=== PATIENT | male | born 2000 | race Caucasian/White ===

== ENCOUNTER 2021-05-23 21:14 | Inpatient (IN) | payer OTHER ==
[2021-05-23 21:37] LABS: BILIRUBIN,URINE NEGATIVE (NEGATIVE); GLUCOSE, URINE (UA) NEGATIVE (NEGATIVE); KETONES,URINE (UA) 15 mg/dL (NEGATIVE); LEUKOCYTE ESTERASE, URINE NEGATIVE (NEGATIVE); NITRITE,URINE NEGATIVE (NEGATIVE); OCCULT BLOOD,URINE LARGE (NEGATIVE); PH,URINE 6.5 PH (5.0-7.5); PROTEIN,URINE 30 mg/dL (NEGATIVE); UROBILINOGEN,URINE 0.2 (NORMAL) E.U./dL (NORMAL)
[2021-05-23 21:42] LABS: CLARITY,URINE CLEAR (CLEAR)
[2021-05-23 21:49] LABS: WBC,URINE 0-3 /HPF (0-3)
[2021-05-23 21:50] LABS: BACTERIA,URINE None Seen /HPF (None Seen); SQUAMOUS EPITHELIAL CELL,UR NONE SEEN (<= Few)
[2021-05-23] MEDS ORDERED: SODIUM CHLORIDE 0.9% 500 ML IV STA (22:02)
--- NOTE | 2021-05-23 22:06 | ED Physician Documentation ---
History of Present Illness - Stated complaint Stated Complaint: BLOOD IN URINE - Chief complaint Chief Complaint: Abd Pain - History obtained from History obtained from: Patient - Additonal information Additional information: 20yM previously healthy p/w hematuria since this morning with dysuria and persistent hematuria in the evening after going to the gym today. Patient states he has been "on and off" about going to the gym and has been undergoing rigorous workouts this past week that are new for him with resultant body aches, especially "after legs day". He reports having some alcohol last night and felt he may have been dehydrated this morning when he urinated and saw his urine was blood tinged. otherwise felt fine. this evening he developed mild constant, gradual onset mid left abdominal aching that is currently 2/10, worse with urinating (max 4/10), a/w mild dysuria and increasing hematuria. denies personal or FH of kidney issues. denies back pain, nausea. denies testicular or penis pain, abnormal discharge, fever, rash, sore throat or recent illness. Review of Systems Ten Systems: 10 systems reviewed and negative Constitutional: reports: Myalgias. denies: Fever, Chills Cardiac: denies: Chest pain / pressure Respiratory: denies: Dyspnea GI: reports: Abdominal Pain. denies: Nausea, Vomiting, Constipation, Diarrhea : reports: Dysuria, Hematuria. denies: Frequency Musculoskeletal: denies: Back pain PD PAST MEDICAL HISTORY - Past Medical History Past Medical History: No - Past Surgical History Past Surgical History: No - Present Medications Home Medications: Ambulatory Orders Medication Instructions Recorded Confirmed No Known Home Medications 05/23/21 05/23/21 - Allergies Allergies/Adverse Reactions: Allergies Allergy/AdvReac Type Severity Reaction Status Date / Time No Known Drug Allergies Allergy Verified 05/23/21 21:22 - Social History Does the pt smoke?: No Smoking Status: Never smoker Does the pt drink ETOH?: Yes Does the pt have substance abuse?: No - Immunizations Immunizations are current?: Yes PD ED PE NORMAL - Vitals Vital signs reviewed: Yes - General General: Alert and oriented X 3, No acute distress, Well developed/nourished - HEENT HEENT: Atraumatic, PERRL, EOMI - Neck Neck: Supple, no meningeal sign - Cardiac Cardiac: RRR - Respiratory Respiratory: No respiratory distress, Clear bilaterally - Abdomen Abdomen: Non tender, Non distended - Back Back: No CVA TTP - Derm Derm: Normal color - Extremities Extremities: No deformity - Neuro Neuro: Alert and oriented X 3 - Psych Psych: Normal mood, Normal affect Results - Vitals Vitals: Vital Signs - 24 hr 05/23/21 21:19 Temperature 36.7 C Heart Rate 76 Respiratory 16 Rate Blood Pressure 149/76 H O2 Saturation 100 Oxygen O2 Source Room air - Labs Labs: Laboratory Tests 05/23/21 05/23/21 05/23/21 21:25 22:10 22:10 WBC 8.7 RBC 5.00 Hgb 15.6 Hct 44.6 MCV 89.2 MCH 31.2 H MCHC 35.0 RDW 12.3 Plt Count 183 MPV 10.7 Neut # (Auto) 5.9 Lymph # (Auto) 1.6 [place] # (Auto) 1.1 H Eos # (Auto) 0.1 Baso # (Auto) 0.0 Absolute Nucleated RBC 0.00 Nucleated RBC % 0.0 Sodium 139 Potassium 3.2 L Chloride 104 Carbon Dioxide 24 Anion Gap 11.0 BUN 7 Creatinine 0.9 Estimated GFR (MDRD) 107 Glucose 95 Calcium 9.1 Total Creatine Kinase 75820 H* Urine Color YELLOW Urine Clarity CLEAR Urine pH 6.5 Ur Specific [place] 1.010 Urine Protein 30 H Urine Glucose (UA) NEGATIVE Urine Ketones 15 H Urine Occult Blood LARGE H Urine Nitrite NEGATIVE Urine Bilirubin NEGATIVE Urine Urobilinogen 0.2 (NORMAL) Ur Leukocyte Esterase NEGATIVE Urine RBC 6-10 H Urine WBC 0-3 Ur Squamous Epith Cells NONE SEEN Urine Bacteria None Seen Ur Microscopic Review INDICATED Urine Culture Comments NOT INDICATED PD MEDICAL DECISION MAKING - ED course ED course: 20yM p/w hematuria, suspect possible mild rhabdomyolysis given recent intense workouts. no cva ttp, no signs of infection on ua. Low suspicion for uti, pyelo, nephrolithiasis. Will eval labs, provide fluids. patient declined pain meds. d/w Dr. Neil for admission for rhabdo. Departure - Departure Disposition: 66 [facility] DC/Xfer Clinical Impression: Rhabdomyolysis Condition: Stable
[2021-05-23 22:20] LABS: BASOPHILS % (AUTO) 0.5 %; EOSINOPHILS # (AUTO) 0.1 10^3/uL (0.0-0.7); EOSINOPHILS % (AUTO) 0.8 %; HCT - HEMATOCRIT 44.6 % (42.0-52.0); HGB - HEMOGLOBIN 15.6 g/dL (14.0-18.0); LYMPHOCYTES # (AUTO) 1.6 10^3/uL (1.5-3.5); LYMPHOCYTES % (AUTO) 18.4 %; MEAN CORPUSCULAR HEMOGLOBIN 31.2 pg (27.0-31.0); MEAN CORPUSCULAR VOLUME 89.2 fL (80.0-94.0); MEAN PLATELET VOLUME 10.7 fL (7.4-11.4); MONOCYTES # (AUTO) 1.1 10^3/uL (0.0-1.0); MONOCYTES % (AUTO) 12.2 %; NEUTROPHILS # (AUTO) 5.9 10^3/uL (1.5-6.6); NEUTROPHILS % (AUTO) 67.9 %; PLT - PLATELET COUNT 183 10^3/uL (130-450); RED CELL DISTRIBUTION WIDTH 12.3 % (12.0-15.0); WHITE BLOOD COUNT 8.7 x10^3/uL (4.8-10.8)
[2021-05-23 23:06] LABS: CALCIUM 9.1 mg/dL (8.5-10.3); CREATININE 0.9 mg/dL (0.6-1.2); POTASSIUM 3.2 mmol/L (3.5-5.0)
[2021-05-23] MEDS ORDERED: POTASSIUM CHLORIDE 20 MEQ/15 ML UDC PO STA (23:08)
[2021-05-23] MEDS ORDERED: SODIUM CHLORIDE 0.9% 1,000 ML IV STA (23:22)
[2021-05-23] MEDS ORDERED: SODIUM CHLORIDE FLUSH 0.9% 10 ML SYRINGE IVP PRN (23:42)
[2021-05-23] MEDS ORDERED: ZOLPIDEM 5 MG TABLET PO PRN (23:42)
[2021-05-23] MEDS ORDERED: ACETAMINOPHEN 325 MG TABLET PO PRN (23:42)
[2021-05-23] MEDS ORDERED: ONDANSETRON 4 MG/2 ML VIAL IVP PRN (23:42)
[2021-05-23] MEDS ORDERED: SODIUM CHLORIDE 0.9% 1,000 ML IV SCH (23:45)
--- NOTE | 2021-05-23 23:57 | HISTORY & PHYSICAL EXAMINATION ---
History of Present Illness - Admitted From Admitted From:: ED - History Obtained From History obtained from: ED provider and the patient - History of Present Illness HPI Comment/Other: This is a 20-year-old white male with a negative past medical history. He is full-time in the [employer]. Patient exercised heavily yesterday and the day before and describes that a new workout was done yesterday using his lower extremities. He woke up today with excruciating pain of his thighs which he tried to help by stretching those muscles for 5 hours, but this even made it worse; it brought tears to his eyes. He also noticed brown-red urine for the past 2 days. With these symptoms he presented to the ER. He rated his pain 8/10 but declined any pain medications. He denied a fever, respiratory symptoms, nausea, vomiting or diarrhea. He did have some lower abdominal pain when he urinated he said. His labs showed extremely high elevated serum CK level of 71,000. He was presented to the Hospitalist service for admission for treating rhabdomyolysis. History - Past Medical History Cardiovascular: reports: None Respiratory: reports: None Neuro: reports: None Endocrine/Autoimmune: reports: None GI: reports: None : reports: None HEENT: reports: None Psych: reports: None Musculoskeletal: reports: None Derm: reports: None MRSA Hx?: No - Family & Social History Family History: Mother: Alive and Well, Father: Alive and Well, Brother: Alive and Well Living arrangement: At home, Other (He is in the [place]) Social History Notes: He is active [employer]. He vapes with 5% nicotine. He drinks twice a month. He is not . - Substance History Use: Uses substance without health or social issues: Tobacco, Alcohol Meds/Allgy - Home Medications Home Medications: Ambulatory Orders Medication Instructions Recorded Confirmed No Known Home Medications 05/23/21 05/23/21 - Allergies Allergies/Adverse Reactions: Allergies Allergy/AdvReac Type Severity Reaction Status Date / Time No Known Drug Allergies Allergy Verified 05/23/21 21:22 Review of Systems - Constitutional Constitutional: reports: Fatigue - Genitourinary Genitourinary: reports: Hematuria - Musculoskeletal Musculoskeletal: reports: Muscle pain Exam - Vital Signs Reviewed Vital Signs: Yes Vital Signs: Vital Signs x48h Temp Pulse Resp BP Pulse Ox 05/23/21 23:51 82 22 147/89 H 98 11/12/21 21:19 36.7 C 76 16 149/76 H 100 - Physical Exam General Appearance: positive: No acute distress, Alert Eyes Bilateral: positive: Normal inspection, EOMI ENT: positive: ENT inspection nml, No signs of dehydration Neck: positive: Nml inspection, No JVD Respiratory: positive: No respiratory distress Cardiovascular: positive: Regular rate & rhythm Abdomen: positive: Non-tender, No distention Skin: positive: No rash, Warm, Dry Extremities: positive: Non-tender, No pedal edema Neurologic/Psychiatric: positive: Oriented x3 (Mom-focal) Conclusion/Plan - Problem List (1) Rhabdomyolysis Conclusion/Plan: He has the classic presentation of muscle pain, dark urine and elevated CK on labs. Will admit to Inpatient status to treat with saline infusion, treat pain and monitor for renal failure and hypocalcemia (which develops from serum calcium influx into injured skeletal muscles). With such a high serum CK, 48 hours or longer of iv fluids is expected. Pain, from muscle injury or from rehydration edema or from muscles being indurated, will be treated. Will check a complete CMP and will follow his BMP, CK and Ca daily. He will need education to avoid such excessive exercise in the future. (2) Exercise myoglobinuria Conclusion/Plan: He describes discolored urine, which is likely from the muscle breakdown, therefore myoglobinuria and not actual hematuria. As such, the U/A result has HIGH Blood but has few RBCs. (3) Hypokalemia Conclusion/Plan: Likely from dehydration after exercise. Replaced in ED. Follow BMP daily. - Lab Results Fish Bones: 05/23/21 22:10 05/23/21 22:10
[2021-05-24 00:30] LABS: B. PARAPERTUSSIS- RESP PCR PAN NOT DETECTED; B. PERTUSSIS- RESP PCR PANEL NOT DETECTED; C. PNEUMONIAE- RESP PCR PANEL NOT DETECTED; CORONAVIRUS 229E-RESP PCR NOT DETECTED; CORONAVIRUS HKU1-RESP PCR NOT DETECTED; CORONAVIRUS NL63-RESP PCR NOT DETECTED; CORONAVIRUS OC43-RESP PCR NOT DETECTED; HUMAN METAPNEUMOVIRUS NOT DETECTED; INFLUENZA A- RESP PCR PANEL NOT DETECTED; INFLUENZA B - RESP PCR PANEL NOT DETECTED; M. PNEUMONIAE- RESP PCR PANEL NOT DETECTED; PARAINFLUENZA VIRUS 1 NOT DETECTED; PARAINFLUENZA VIRUS 2 NOT DETECTED; PARAINFLUENZA VIRUS 3 NOT DETECTED; PARAINFLUENZA VIRUS 4 NOT DETECTED; RHINOVIRUS/ENTEROVIRUS NOT DETECTED; RSV- RESP PCR PANEL NOT DETECTED; SARS-CoV-2 -RESP PCR PANEL NOT DETECTED
[2021-05-24 00:55] LABS: ALBUMIN 3.8 g/dL (3.2-5.5); BILIRUBIN,DIRECT 0.2 mg/dL (0.1-0.5); BILIRUBIN,TOTAL 0.6 mg/dL (0.2-1.0); TOTAL PROTEIN 6.3 g/dL (6.7-8.2)
[2021-05-24] MEDS: NICOTINE 7 MG PATCH TOP PRN (01:27)
[2021-05-24 05:24] LABS: CREATININE 0.8 mg/dL (0.6-1.2); MAGNESIUM 2.2 mg/dL (1.7-2.8); POTASSIUM 3.8 mmol/L (3.5-5.0)
[2021-05-24] MEDS: SODIUM CHLORIDE FLUSH 0.9% 10 ML SYRINGE IVP SCH ×3 (05:28→17:23)
[2021-05-24] MEDS: SODIUM CHLORIDE 0.9% 1,000 ML IV SCH ×5 (08:17→21:15)
[2021-05-24 08:39] LABS: ETOH - ETHANOL < 5.0 mg/dL
[2021-05-24 08:40] LABS: CK- CREATINE KINASE 68071 IU/L (22-269)
--- NOTE | 2021-05-24 09:01 | PHARMACY PROGRESS NOTE ---
- Best Possible Medication History Admit Date and Time: 05/23/21 1019 Processed by: Nursing Medication History completed: Yes Patient Interview: Completed As the person ultimately responsible for medication therapy, providers are able to order a medication from an existing home medication list in [facility] via the "Reconcile Routine" prior to Confirmation of that medication by support associate. Such practice is discouraged except when the physician, in their clinical judg ment, deems that a medical need exists for a medication without regard to previous use.
--- NOTE | 2021-05-24 10:32 | PROVIDER PROGRESS NOTE ---
Assessment/Plan - Problem List (1) Rhabdomyolysis Assessment/Plan: 05/24 [place] [address] [place] [address]. pt report his muscle pain is resolved. he feel much better. he tolerated his diet. creatinine is at normal arrange. Educate the importance to keep hydration special at exercise to pt. increased IVF to 250cc/h, daily lab and CK monitor (2) protein in urine Conclusion/Plan: it is likely from the muscle breakdown from his extensive exercise and dehydration. pt has normal arrange creatinine level now. increase IVF to 250cc/h, continue lab monitor (3) Hypokalemia resolved. - Current Meds Current Meds: Current Medications Generic Name Dose Route Start Last Admin Trade Name Freq PRN Reason Stop Dose Admin Sodium Chloride 1,000 mls @ 250 mls/hr 05/24/21 07:38 05/24/21 09:49 Normal Saline 0.9% IV 250 mls/hr .Q4H JAMES Administration Nicotine 1 patch 05/24/21 01:18 05/24/21 01:27 Nicotine 7 Mg Patch TOP 1 patch DAILY PRN Administration Nicotine Craving Sodium Chloride 10 ml 05/24/21 01:00 05/24/21 08:22 Sodium Chloride Flush 0.9% 10 Ml Syringe IVP Not Given 0100,0900,1700 JAMES - Lab Result Fish Bone Diagrams: 05/23/21 22:10 05/24/21 05:05 - Additional Planning My Orders: My Active Orders 05/24/21 07:38 Sodium Chloride 0.9% [Normal Saline 0.9%] 1,000 ml IV 250 mls/hr 05/25/21 05:00 CK- CREATINE KINASE [CHEM] DAILYLAB 05/26/21 05:00 CK- CREATINE KINASE [CHEM] DAILYLAB 05/27/21 05:00 CK- CREATINE KINASE [CHEM] DAILYLAB 05/28/21 05:00 CK- CREATINE KINASE [CHEM] DAILYLAB 05/29/21 05:00 CK- CREATINE KINASE [CHEM] DAILYLAB Subjective - Subjective Patient Reports: Feeling Better, Resting Comfortably Objective Vital Signs: Vital Signs - 24 hr 05/23/21 05/23/21 05/24/21 21:19 23:51 00:46 Temperature 36.7 C 37.0 C Heart Rate 76 82 Heart Rate [ 74 Brachial] Respiratory 16 22 16 Rate Blood Pressure 149/76 H 147/89 H Blood Pressure 150/79 H [Left Brachial artery] O2 Saturation 100 98 100 05/24/21 08:00 Temperature 36.5 C Heart Rate Heart Rate [ 58 L Brachial] Respiratory 14 Rate Blood Pressure Blood Pressure 120/71 [Left Brachial artery] O2 Saturation Oxygen O2 Source Room air I&O (Last 24 Hrs): Intake and Output Totals x24h 05/22/21 05/23/21 05/24/21 23:59 23:59 23:59 Intake Total 500 1500 Balance 500 1500 General: Alert, Oriented x3, Cooperative, No acute distress HEENT: Atraumatic, PERRLA Neck: Supple Lymphatic: no adenopathy Neuro: Alert, Non Focal, Oriented Times 3 Cardiovascular: Regular rate, Normal S1, Normal S2 Respiratory: Chest non-tender, No respiratory distress, Breath sounds nml Abdomen: Normal bowel sounds, Soft, No tenderness Extremities: Normal pulses - Results Results: Laboratory Results WBC 8.7 x10^3/uL (4.8-10.8) 05/23/21 22:10 RBC 5.00 10^6/uL (4.70-6.10) 05/23/21 22:10 Hgb 15.6 g/dL (14.0-18.0) 05/23/21 22:10 Hct 44.6 % (42.0-52.0) 05/23/21 22:10 MCV 89.2 fL (80.0-94.0) 05/23/21 22:10 MCH 31.2 pg (27.0-31.0) H 05/23/21 22:10 MCHC 35.0 g/dL (32.0-36.0) 05/23/21 22:10 RDW 12.3 % (12.0-15.0) 05/23/21 22:10 Plt Count 183 10^3/uL (130-450) 05/23/21 22:10 MPV 10.7 fL (7.4-11.4) 05/23/21 22:10 Neut # (Auto) 5.9 10^3/uL (1.5-6.6) 05/23/21 22:10 Lymph # (Auto) 1.6 10^3/uL (1.5-3.5) 05/23/21 22:10 [place] # (Auto) 1.1 10^3/uL (0.0-1.0) H 05/23/21 22:10 Eos # (Auto) 0.1 10^3/uL (0.0-0.7) 05/23/21 22:10 Baso # (Auto) 0.0 10^3/uL (0.0-0.1) 05/23/21 22:10 Absolute Nucleated RBC 0.00 x10^3/uL 05/23/21 22:10 Nucleated RBC % 0.0 /100WBC 05/23/21 22:10 Sodium 138 mmol/L (135-145) 05/24/21 05:05 Potassium 3.8 mmol/L (3.5-5.0) 05/24/21 05:05 Chloride 109 mmol/L (101-111) 05/24/21 05:05 Carbon Dioxide 22 mmol/L (21-32) 05/24/21 05:05 Anion Gap 7.0 (6-13) 05/24/21 05:05 BUN 5 mg/dL (6-20) L 05/24/21 05:05 Creatinine 0.8 mg/dL (0.6-1.2) 05/24/21 05:05 Estimated GFR (MDRD) 122 (>89) 05/24/21 05:05 Glucose 98 mg/dL (70-100) 05/24/21 05:05 Calcium 8.0 mg/dL (8.5-10.3) L 05/24/21 05:05 Magnesium 2.2 mg/dL (1.7-2.8) 05/24/21 05:05 Total Bilirubin 0.6 mg/dL (0.2-1.0) 05/24/21 00:33 Direct Bilirubin 0.2 mg/dL (0.1-0.5) 05/24/21 00:33 AST 861 IU/L (10-42) H 05/24/21 00:33 ALT 194 IU/L (10-60) H 05/24/21 00:33 Alkaline Phosphatase 53 IU/L (42-121) 05/24/21 00:33 Total Creatine Kinase 81944 IU/L (22-269) H* 05/24/21 05:05 Total Protein 6.3 g/dL (6.7-8.2) L 05/24/21 00:33 Albumin 3.8 g/dL (3.2-5.5) 05/24/21 00:33 Globulin 2.5 g/dL (2.1-4.2) 05/24/21 00:33 Urine Color YELLOW 05/23/21 21:25 Urine Clarity CLEAR (CLEAR) 05/23/21 21: Urine pH 6.5 PH (5.0-7.5) 05/23/21 21:25 Ur Specific [place] 1.010 (1.002-1.030) 05/23/21 21: Urine Protein 30 mg/dL (NEGATIVE) H 05/23/21 21: Urine Glucose (UA) NEGATIVE mg/dL (NEGATIVE) 05/23/21: Urine Ketones 15 mg/dL (NEGATIVE) H 05/23/21 21: Urine Occult Blood LARGE (NEGATIVE) H 05/23/21 21: Urine Nitrite NEGATIVE (NEGATIVE) 05/23/21 21: Urine Bilirubin NEGATIVE (NEGATIVE) 05/23/21 21: Urine Urobilinogen 0.2 (NORMAL) E.U./dL (NORMAL) 05/23/21 21: Ur Leukocyte Esterase NEGATIVE (NEGATIVE) 05/23/21 21: Urine RBC 6-10 /HPF (0-5) H 05/23/21 21: Urine WBC 0-3 /HPF (0-3) 05/23/21 21:25 Ur Squamous Epith Cells NONE SEEN (<= Few) 05/23/21 21: Urine Bacteria None Seen /HPF (None Seen) 05/23/21 21: Ur Microscopic Review INDICATED 05/23/21 21: Urine Culture Comments NOT INDICATED 05/23/21 21: Nasal Adenovirus (PCR) NOT DETECTED 05/23/21 23: Nasal B. parapertussis DNA (PCR) NOT DETECTED 05/23/21 23: Nasal Coronavir 229E PCR NOT DETECTED 05/23/21 23: Nasal Coronavir HKU1 PCR NOT DETECTED 05/23/21 23: Nasal Coronavir NL63 PCR NOT DETECTED 05/23/21 23: Nasal Coronavir OC43 PCR NOT DETECTED 05/23/21 23: Nasal Enterovir/Rhinovir PCR NOT DETECTED 05/23/21 23:28 Nasal Influenza B PCR NOT DETECTED 05/23/21 23:28 Nasal Influenza A PCR NOT DETECTED 05/23/21 23:28 Nasal Parainfluen 1 PCR NOT DETECTED 05/23/21 23:28 Nasal Parainfluen 2 PCR NOT DETECTED 05/23/21 23:28 Nasal Parainfluen 3 PCR NOT DETECTED 05/23/21 23:28 Nasal Parainfluen 4 PCR NOT DETECTED 05/23/21 23:28 Nasal RSV (PCR) NOT DETECTED 05/23/21 23:28 Nasal B.pertussis DNA PCR NOT DETECTED 05/23/21 23:28 Nasal C.pneumoniae (PCR) NOT DETECTED 05/23/21 23:28 Bran Human Metapneumo PCR NOT DETECTED 05/23/21 23:28 Nasal M.pneumoniae (PCR) NOT DETECTED 05/23/21 23:28 Nasal SARS-CoV-2 (PCR) NOT DETECTED 05/23/21 23:28 Ethyl Alcohol < 5.0 mg/dL 05/24/21 05:05 ABX Reporting Has patient been on IV antibiotics over the past 48 hours?: No Current Medications - Current Medications Current Medications: Active Medications Acetaminophen (Acetaminophen 325 Mg Tablet) 650 mg PO Q4HR PRN PRN Reason: Pain 1 to 4 Sodium Chloride (Normal Saline 0.9%) 1,000 mls @ 250 mls/hr IV .Q4H [facility] Last Admin: 05/24/21 09:49 Dose: 250 mls/hr Documented by: Nicotine (Nicotine 7 Mg Patch) 1 patch TOP DAILY PRN PRN Reason: Nicotine Craving Last Admin: 05/24/21 01:27 Dose: 1 patch Documented by: Ondansetron HCl (Ondansetron 4 Mg/2 Ml Vial) 4 mg IVP Q6HR PRN PRN Reason: Nausea / Vomiting Sodium Chloride (Sodium Chloride Flush 0.9% 10 Ml Syringe) 10 ml IVP PRN PRN PRN Reason: NEEDED PER PROVIDER ORDERS Sodium Chloride (Sodium Chloride Flush 0.9% 10 Ml Syringe) 10 ml IVP 0100,0900,1700 [facility] Last Admin: 05/24/21 08:22 Dose: Not Given Documented by: Zolpidem Tartrate (Zolpidem 5 Mg Tablet) 5 mg PO QPM PRN PRN Reason: Insomnia No Known Home Medications 05/23/21
[2021-05-24] MEDS ORDERED: miSOPROStoL 200 MCG TABLET ONE (19:09)
[2021-05-24] MEDS ORDERED: METHYLERGONOVINE 0.2 MG/ML VIAL ONE (19:10)
[2021-05-24] MEDS ORDERED: CARBOPROST TROMETHAMINE 250 MCG/ML AMP IM ONE (19:10)
[2021-05-25] MEDS: SODIUM CHLORIDE FLUSH 0.9% 10 ML SYRINGE IVP SCH ×4 (00:02→23:45)
[2021-05-25] MEDS: SODIUM CHLORIDE 0.9% 1,000 ML IV SCH ×6 (01:07→21:46)
[2021-05-25 05:31] LABS: BASOPHILS % (AUTO) 0.6 %; EOSINOPHILS # (AUTO) 0.2 10^3/uL (0.0-0.7); EOSINOPHILS % (AUTO) 4.5 %; HCT - HEMATOCRIT 39.7 % (42.0-52.0); HGB - HEMOGLOBIN 13.4 g/dL (14.0-18.0); LYMPHOCYTES # (AUTO) 1.8 10^3/uL (1.5-3.5); LYMPHOCYTES % (AUTO) 35.9 %; MEAN CORPUSCULAR HEMOGLOBIN 30.9 pg (27.0-31.0); MEAN CORPUSCULAR HGB CONC 33.8 g/dL (32.0-36.0); MEAN CORPUSCULAR VOLUME 91.5 fL (80.0-94.0); MEAN PLATELET VOLUME 11.1 fL (7.4-11.4); MONOCYTES # (AUTO) 0.6 10^3/uL (0.0-1.0); MONOCYTES % (AUTO) 11.7 %; NEUTROPHILS # (AUTO) 2.4 10^3/uL (1.5-6.6); NEUTROPHILS % (AUTO) 47.1 %; PLT - PLATELET COUNT 159 10^3/uL (130-450); RED BLOOD COUNT 4.34 10^6/uL (4.70-6.10); RED CELL DISTRIBUTION WIDTH 12.3 % (12.0-15.0); WHITE BLOOD COUNT 5.1 x10^3/uL (4.8-10.8)
[2021-05-25 06:12] LABS: ALBUMIN 3.4 g/dL (3.2-5.5); BILIRUBIN,DIRECT 0.1 mg/dL (0.1-0.5); CALCIUM 8.7 mg/dL (8.5-10.3); CREATININE 0.7 mg/dL (0.6-1.2); POTASSIUM 3.9 mmol/L (3.5-5.0); TOTAL PROTEIN 5.9 g/dL (6.7-8.2)
--- NOTE | 2021-05-25 08:09 | PROVIDER PROGRESS NOTE ---
Subjective - Prog Note Date Prog Note Date: 05/25/21 Prog Note Time: 08:07 - Subjective Pt reports feeling: Improved Subjective: He feels completely normal. Pretty bored. Ambulating in the room. Eating his breakfast. Watching TV. Nothing hurts. We are just waiting for his CPK levels to go down. Gets up to urinate quite a bit because of our IV fluids and urine is now very very clear. Current Medications - Current Medications Current Medications: Active Medications Acetaminophen (Acetaminophen 325 Mg Tablet) 650 mg PO Q4HR PRN PRN Reason: Pain 1 to 4 Sodium Chloride (Normal Saline 0.9%) 1,000 mls @ 250 mls/hr IV .Q4H [facility] Last Admin: 05/25/21 04:54 Dose: 250 mls/hr Documented by: Nicotine (Nicotine 7 Mg Patch) 1 patch TOP DAILY PRN PRN Reason: Nicotine Craving Last Admin: 05/24/21 01:27 Dose: 1 patch Documented by: Ondansetron HCl (Ondansetron 4 Mg/2 Ml Vial) 4 mg IVP Q6HR PRN PRN Reason: Nausea / Vomiting Sodium Chloride (Sodium Chloride Flush 0.9% 10 Ml Syringe) 10 ml IVP PRN PRN PRN Reason: NEEDED PER PROVIDER ORDERS Sodium Chloride (Sodium Chloride Flush 0.9% 10 Ml Syringe) 10 ml IVP 0100,0 900,1700 [facility] Last Admin: 05/25/21 00:02 Dose: Not Given Documented by: Zolpidem Tartrate (Zolpidem 5 Mg Tablet) 5 mg PO QPM PRN PRN Reason: Insomnia No Known Home Medications 05/23/21 Objective - Vital Signs/Intake & Output Reviewed Vital Signs: Yes Intake & Output: Intake & Output 05/22/21 05/23/21 05/24/21 05/25/21 23:59 23:59 23:59 23:59 Intake Total 500 2128.334 1912.500 Output Total 450 500 Balance 500 5878.334 1412.500 - Objective General Appearance: positive: No acute distress, Alert, Other (Young white male with lean body mass, 5 foot 8 inches tall, 74 kg) Eyes Bilateral: positive: PERRL, EOMI ENT: positive: No signs of dehydration Neck: positive: No JVD. negative: Lymphadenopathy (R), Lymphadenopathy (L), Stiff neck Respiratory: positive: No respiratory distress. negative: Wheezes, Rales, Rhonchi Cardiovascular: positive: Regular rate & rhythm. negative: Systolic murmur, Gallop/S4, Friction rub Abdomen: positive: Non-tender, No organomegaly, Nml bowel sounds, No distention Skin: positive: Warm, Dry Extremities: positive: Non-tender, Full ROM, No pedal edema Neurologic/Psychiatric: positive: Oriented x3, CN's nml (2-12), Motor nml, Sensation nml - Lab Results Fish Bones: 05/25/21 05:05 05/25/21 05:05 Other Labs: Lab Results x24hrs 05/25/21 05/25/21 05/24/21 Range/Units 05:05 05:05 05:05 WBC 5.1 (4.8-10.8) x10^3/uL RBC 4.34 L (4.70-6.10) 10^6/uL Hgb 13.4 L (14.0-18.0) g/dL Hct 39.7 L (42.0-52.0) % MCV 91.5 (80.0-94.0) fL MCH 30.9 (27.0-31.0) pg MCHC 33.8 (32.0-36.0) g/dL RDW 12.3 (12.0-15.0) % Plt Count 159 (130-450) 10^3/uL MPV 11.1 (7.4-11.4) fL Neut # (Auto) 2.4 (1.5-6.6) 10^3/uL Lymph # (Auto) 1.8 (1.5-3.5) 10^3/uL [place] # (Auto) 0.6 (0.0-1.0) 10^3/uL Eos # (Auto) 0.2 (0.0-0.7) 10^3/uL Baso # (Auto) 0.0 (0.0-0.1) 10^3/uL Absolute Nucleated RBC 0.00 x10^3/uL Nucleated RBC % 0.0 /100WBC Sodium 144 (135-145) mmol/L Potassium 3.9 (3.5-5.0) mmol/L Chloride 112 H (101-111) mmol/L Carbon Dioxide 23 (21-32) mmol/L Anion Gap 9.0 (6-13) BUN 5 L (6-20) mg/dL Creatinine 0.7 (0.6-1.2) mg/dL Estimated GFR (MDRD) 142 (>89) Glucose 87 (70-100) mg/dL Calcium 8.7 (8.5-10.3) mg/dL Total Bilirubin 1.0 (0.2-1.0) mg/dL Direct Bilirubin 0.1 (0.1-0.5) mg/dL AST 735 H (10-42) IU/L ALT 217 H (10-60) IU/L Alkaline Phosphatase 43 (42-121) IU/L Total Creatine Kinase 13217 H* 02555 H* (22-269) IU/L Total Protein 5.9 L (6.7-8.2) g/dL Albumin 3.4 (3.2-5.5) g/dL Globulin 2.5 (2.1-4.2) g/dL Ethyl Alcohol < 5.0 mg/dL Assessment/Plan - Problem List (1) Rhabdomyolysis Impression: From exercise. His CPK started at 71,992. Today it is 56,742. He also has indirect AST and ALT elevation from muscle enzyme release. On admission he was 861. Today 735. ALT was 194 and it is 217 today. Potassium is normal. BUN and creatinine are normal. Plan: Continue IV hydration He is already ambulating in the room, eating, and independent with ADLs. Once his CPK is below 30,000 we will discharge. There is no recommendation in the literature for a cutoff point. But this gentleman is ambulating, independent, eating and drinking normally. I see no reason to keep him here beyond a certain point (2) protein in urine due to exercise myoglobinuria Conclusion/Plan: it is likely from the muscle breakdown from his extensive exercise and dehydration. pt has normal arrange creatinine level now. on IVF to 250cc/h, continue monitor lab (3) Hypokalemia resolved.
[2021-05-25] MEDS: NICOTINE 7 MG PATCH TOP PRN (13:49)
[2021-05-26] MEDS: SODIUM CHLORIDE 0.9% 1,000 ML IV SCH ×2 (01:37→05:40)
[2021-05-26 06:27] LABS: ALBUMIN 3.5 g/dL (3.2-5.5); BILIRUBIN,DIRECT 0.1 mg/dL (0.1-0.5); BILIRUBIN,TOTAL 0.6 mg/dL (0.2-1.0); CALCIUM 8.3 mg/dL (8.5-10.3); CREATININE 0.7 mg/dL (0.6-1.2); POTASSIUM 3.9 mmol/L (3.5-5.0); TOTAL PROTEIN 5.7 g/dL (6.7-8.2)
--- NOTE | 2021-05-26 08:18 | Discharge Plan ---
Discharge Plan Problem Reviewed?: Yes Disposition: Home, Self Care Condition: Stable Diet: Regular Activity Restrictions: Activity as Tolerated (no working out for 2 weeks then resume light weight lifting. no muscle group worked out more than every other day.) Shower Restrictions: No Driving Restrictions: No Instruction Topics: Rhabdomyolysis Health Concerns: Presented to the emergency room after working out for 2 days. It resulted in severe thigh pain and brown urine so you came in for that evaluation. We found you to have severe, severe, severe muscle breakdown due to weight lifting. It is called rhabdomyolysis. The protein breakdown can sometimes give you kidney failure and elevation of liver enzymes. You have done very well with aggressive hydration. A normal amount of muscle enzyme measurement, called creatinine kinase, is up to 269. Your muscle degradation measurement was 71,992 on admission. Your urine has cleared. Is no longer brown. Today's value is 37,781. Plan of Treatment: He received quite a bit of hydration through your veins. Now that you are going home, we strongly encourage you to drink at least a liter of water a day. You do not have to drink more than that because there is a danger in drinking too much water. You can actually dilute your salt so severely that it gives you a different problem. So continue to drink no more than a liter a day. Do not work out for at least 2 weeks. When you do resume working out try and work out the same muscle group no more than every other day. Start very slowly with low weights. Do not more do than 15 repetitions, 3 sets for 1 muscle group. Care Goals: To not ever have this happen again Assessment: Patient understands pathophysiology, care goals, and will follow up with his primary care provider in the next 1 to 2 weeks. No Smoking: If you smoke, Please STOP! Call for help.
[2021-05-26 08:44] VITALS: BP 119/54
[2021-05-26] MEDS: SODIUM CHLORIDE FLUSH 0.9% 10 ML SYRINGE IVP SCH (09:05)
--- NOTE | 2021-05-26 18:20 | DISCHARGE SUMMARY ---
Discharge Summary Admit Date: 05/23/21 Discharge Date: 05/26/21 Discharging Provider: Johana Winston MD Primary Care Provider: Haley Lima [facility] Family Practice Code Status: Attempt Resuscitation Condition at Discharge: Stable Discharge Disposition: 01 Home, Self Care - DIAGNOSES Discharge Diagnoses with Status of Each Condition: 1. Rhabdomyolysis 2. Exercise myoglobinuria 3. Hypokalemia - HPI History of Present Illness: This is a 20-year-old white male with a negative past medical history. He is full-time in the [employer]. Patient exercised heavily yesterday and the day before and describes that a new workout was done yesterday using his lower extremities. He woke up today with excruciating pain of his thighs which he tried to help by stretching those muscles for 5 hours, but this even made it worse; it brought tears to his eyes. He also noticed brown-red urine for the past 2 days. With these symptoms he presented to the ER. He rated his pain 8/10 but declined any pain medications. He denied a fever, respiratory symptoms, nausea, vomiting or diarrhea. He did have some lower abdominal pain when he urinated he said. His labs showed extremely high elevated serum CK level of 71,000. He was presented to the Hospitalist service for admission for treating rhabdomyolysis. - Past Medical History Cardiovascular: reports: None Respiratory: reports: None Neuro: reports: None Endocrine/Autoimmune: reports: None GI: reports: None : reports: None HEENT: reports: None Psych: reports: None Musculoskeletal: reports: None Derm: reports: None MRSA Hx?: No - HOSPITAL COURSE Hospital Course: This young man received aggressive, aggressive IV fluid hydration. CPK started out at 71,992. By the day of discharge he was 37,781. AST and ALT did rise and was felt to be due to the muscle breakdown. At the time of discharge acute hepatitis panel is pending and should be reviews just for completeness sake. He received anywhere between 5800 cc a day extra fluid and went his high is 6563 extra fluid the day before discharge. He was ambulating in his room. Urine was now very clear. Muscle pain was gone. Eating well. I expect that he will gr adually go down on his CPK. I do not think he needs to stay here to do that. I have asked him to drink a liter and a half of water a day and not more than that. To not work out with weights for at least 2 weeks. If he does work out to not do more than 3 sets at a time, 15 repetitions each. To work different muscle groups but not consecutively. In other words do not work out the same muscle groups such as arms, more than every other day. He is discharged in stable condition. Temperature 36.6. Pulse 63. Blood pressure 119/54. Respirations 18. 99% on room air. He is a young, well-nou rished well-developed white male. 5 foot 8 inches tall, weighs 74 kg. Neck is supple. Lungs are clear to auscultation and percussion. PMI is normally placed. Regular rate and rhythm. Abdomen soft, nontender, no hepatosplenomegaly. Extremities, when palpated, are not painful. There is no tenderness of biceps, triceps, calves. He ambulates without any assistance. Discharged in stable condition and asked to follow-up with his primary care provider [facility]. - ALLERGIES Allergies/Adverse Reactions: Allergies Allergy/AdvReac Type Severity Reaction Status Date / Time No Known Drug Allergies Allergy Verified 05/23/21 21:22 - MEDICATIONS Home Medications: Ambulatory Orders Medication Instructions Recorded Confirmed No Known Home Medications 05/23/21 05/23/21 - LABS Result Diagrams: 05/25/21 05:05 05/26/21 05:30
[2021-05-27 09:51] LABS: HEPATITIS A IGM NON-REACTIVE (NON-REACTIVE); HEPATITIS B CORE ANTIBODY IGM NON-REACTIVE (NON-REACTIVE); HEPATITIS B SURFACE ANTIGEN NON-REACTIVE (NON-REACTIVE); HEPATITIS C ANTIBODY NON-REACTIVE (NON-REACTIVE)
== END 2021-05-26 10:20 | disposition home or self-care (01) | DRG 558 ==
LOC: ED 21:14 → MS3 23:42
PROVIDERS: ADMIT Internal Medicine; ATTEND Specialist
DX: M62.82 Rhabdomyolysis (principal); R82.1 Myoglobinuria; E87.6 Hypokalemia; F17.290 Nicotine dependence, other tobacco product, uncomplicated; Z20.822 Contact with and (suspected) exposure to COVID-19
CPT/HCPCS: 0202U; 36415; 80048; 80074; 80076; 80320; 81001; 82550; 83735; 85025; 99283; 99285; A9270; 81003; 82310; 87086